=== PATIENT | female | born 1980 | race Caucasian/White ===

== ENCOUNTER 2018-01-28 11:55 | Inpatient (IN) | payer MEDICAID ==
[2018-01-28] MEDS: LACTATED RINGER'S 1,000 ML IV ×3 (13:24→22:36)
[2018-01-28] MEDS ORDERED: METHYLERGONOVINE 0.2 MG INJ IM (13:30)
[2018-01-28] MEDS ORDERED: OXYTOCIN 30 UNITS/LR 500 ML IV (13:30)
[2018-01-28] MEDS ORDERED: MISOPROSTOL 200 MCG TAB PR (13:30)
[2018-01-28] MEDS ORDERED: CARBOPROST 250 MCG INJ IM (13:30)
[2018-01-28 14:07] LABS: ADD MAN DIFF? NO
[2018-01-28 14:10] LABS: BASOPHILS % 0.4 % (0.0-2.0); EOSINOPHILS # 0.3 10^3/ul (0.0-0.5); EOSINOPHILS % 2.9 % (0.0-7.0); HEMATOCRIT 33.9 % (37.0-47.0); HEMOGLOBIN 11.1 g/dl (12.0-16.0); LYMPHOCYTES # 1.9 10^3/ul (0.8-2.9); LYMPHOCYTES % 21.3 % (15.0-51.0); MEAN CORPUSCULAR HEMOGLOBIN 29.9 pg (29.0-33.0); MEAN CORPUSCULAR HGB CONC 32.7 g/dl (32.0-37.0); MEAN CORPUSCULAR VOLUME 91.4 fl (82.0-101.0); MEAN PLATELET VOLUME 10.8 fl (7.4-10.4); MONOCYTE # 0.5 10^3/ul (0.3-0.9); MONOCYTES % 5.3 % (0.0-11.0); NEUTROPHIL # 6.3 10^3/ul (1.6-7.5); NEUTROPHILS % 69.8 % (39.0-77.0); PLATELET COUNT 306 10^3/UL (140-415); RED BLOOD COUNT 3.71 10^6/ul (4.20-5.40); RED CELL DISTRIBUTION WIDTH 13.6 % (11.5-14.5)
[2018-01-28 14:29] LABS: INR 0.83; PROTIME 11.5 Sec (11.9-14.9); PT RATIO 0.9
[2018-01-28 14:30] LABS: PARTIAL THROMBOPLASTIN TIME 27.1 Sec (25.0-35.0)
[2018-01-28 19:43] LABS: RAPID PLASMA REAGIN NONREACTIVE (NR)
[2018-01-28] MEDS ORDERED: METOCLOPRAMIDE 10 MG INJ (20:29)
[2018-01-28] MEDS ORDERED: PHENYLephrine (100 MCG/ML) 5ML SYG (20:29)
[2018-01-28] MEDS ORDERED: morphine SULFATE/PF (10 MG/10 ML) INJ (20:29)
[2018-01-28] MEDS ORDERED: BUPIVACAINE 0.75%/DEXT (SPINAL) 2 ML INJ (20:29)
[2018-01-28] MEDS ORDERED: OXYTOCIN 10 UNIT INJ (20:29)
[2018-01-28] MEDS ORDERED: FENTAnyl 50 MCG/ML VIAL (20:29)
[2018-01-28] MEDS: OXYTOCIN 30 UNITS/LR 500 ML IV (22:15)
[2018-01-28] MEDS: CEFAZOLIN 2 GM/50 ML (PMX) 50 ML IV (22:37)
[2018-01-28 23:11] LABS: ADD MAN DIFF? NO
[2018-01-28 23:13] LABS: WHITE BLOOD COUNT 10.9 10^3/ul (4.8-10.8)
[2018-01-28 23:13] LABS: BASOPHIL # 0.1 10^3/ul (0.0-0.1); BASOPHILS % 0.5 % (0.0-2.0); EOSINOPHILS # 0.2 10^3/ul (0.0-0.5); HEMATOCRIT 32.1 % (37.0-47.0); HEMOGLOBIN 10.4 g/dl (12.0-16.0); LYMPHOCYTES % 18.7 % (15.0-51.0); MEAN CORPUSCULAR HGB CONC 32.4 g/dl (32.0-37.0); MEAN CORPUSCULAR VOLUME 92.5 fl (82.0-101.0); MEAN PLATELET VOLUME 10.7 fl (7.4-10.4); MONOCYTE # 0.4 10^3/ul (0.3-0.9); MONOCYTES % 3.4 % (0.0-11.0); NEUTROPHIL # 8.2 10^3/ul (1.6-7.5); NEUTROPHILS % 75.1 % (39.0-77.0); PLATELET COUNT 271 10^3/UL (140-415); RED BLOOD COUNT 3.47 10^6/ul (4.20-5.40); RED CELL DISTRIBUTION WIDTH 13.7 % (11.5-14.5)
[2018-01-28 23:18] LABS: ADD UMIC YES; UR ASCORBIC ACID NEGATIVE (NEGATIVE); UR BACTERIA FEW /HPF (NONE SEEN); UR BILIRUBIN (Dip) NEGATIVE (NEGATIVE); UR BLOOD (Dip) 2+ mg/dL (NEGATIVE); UR CLARITY CLEAR (CLEAR); UR COLOR STRAW (YELLOW); UR GLUCOSE (Dip) NEGATIVE (NEGATIVE); UR KETONES (Dip) 1+ mg/dL (NEGATIVE); UR LEUKOCYTE ESTERASE (Dip) NEGATIVE Leu/ul (NEGATIVE); UR NITRITE (Dip) NEGATIVE (NEGATIVE); UR RBC 2 /HPF (0-5); UR SPECIFIC GRAVITY (Dip) 1.009 (1.003-1.030); UR TOTAL PROTEIN (Dip) NEGATIVE (NEGATIVE); UR UROBILINOGEN (Dip) NEGATIVE (NEGATIVE); UR WBC 1 /HPF (0-5)
[2018-01-28 23:32] LABS: ALANINE AMINOTRANSFERASE 16 IU/L (13-69); ALBUMIN 2.7 g/dl (3.3-4.9); ALBUMIN/GLOBULIN RATIO 0.87; ALKALINE PHOSPHATASE 210 IU/L (42-121); ANION GAP 10 (8-16); ASPARTATE AMINO TRANSFERASE 21 IU/L (15-46); BILIRUBIN,INDIRECT 0.3 mg/dl (0-1.1); BILIRUBIN,TOTAL 0.3 mg/dl (0.2-1.3); BLOOD UREA NITROGEN 6 mg/dl (7-20); CALCIUM 8.5 mg/dl (8.4-10.2); CARBON DIOXIDE 25 mmol/L (21-31); CHLORIDE 105 mmol/L (97-110); CREATININE 0.46 mg/dl (0.44-1.00); GLUCOSE 88 mg/dl (70-220); POTASSIUM 4.1 mmol/L (3.5-5.1); SODIUM 136 mmol/L (135-144); TOTAL PROTEIN 5.8 g/dl (6.1-8.1); URIC ACID 3.2 mg/dl (3.1-7.9)
[2018-01-29] MEDS ORDERED: LABETALOL HCL 20MG INJ IV
[2018-01-29] MEDS ORDERED: NALOXONE (0.4 MG/ML) INJ IV
[2018-01-29] MEDS ORDERED: DIPHENHYDRAMINE 50 MG INJ IV ×2
[2018-01-29] MEDS ORDERED: IPRATROPIUM (NEB) 0.5 MG/2.5 ML AMP HHN
[2018-01-29] MEDS ORDERED: EPHEDrine SULFATE 50 MG/5 ML SYG IV
[2018-01-29] MEDS ORDERED: MIDAZOLAM 1 MG/ML 2 ML INJ IV
[2018-01-29] MEDS ORDERED: hydrALAzine 20 MG INJ IV
[2018-01-29] MEDS ORDERED: FENTAnyl 50 MCG/ML VIAL IV ×3
[2018-01-29] MEDS ORDERED: ALBUTEROL 0.083% (NEB) 2.5 MG/3 ML AMP HHN
[2018-01-29] MEDS ORDERED: morphine 2 MG INJ IV ×2
[2018-01-29] MEDS ORDERED: TRIMETHOBENZAMIDE 100 MG/ML VIAL IM ×2
[2018-01-29] MEDS ORDERED: NALBUPHINE HCL (10 MG/1 ML) INJ IV
[2018-01-29] MEDS ORDERED: MEPERIDINE 25 MG INJ IV
[2018-01-29] MEDS ORDERED: ONDANSETRON 4 MG INJ IV ×2
[2018-01-29] MEDS ORDERED: HYDROmorphONE 1 MG/5 ML IV SYRINGE IV ×3
[2018-01-29] MEDS: OXYTOCIN 30 UNITS/LR 500 ML IV ×2 (00:22→02:22)
[2018-01-29] MEDS ORDERED: OXYTOCIN 30 UNITS/LR 500 ML IV (00:30)
[2018-01-29] MEDS ORDERED: LANOLIN 7 GM TUBE TOP (00:30)
[2018-01-29] MEDS ORDERED: METHYLERGONOVINE 0.2 MG TAB PO (00:30)
[2018-01-29] MEDS ORDERED: METHYLERGONOVINE 0.2 MG INJ IM (00:30)
[2018-01-29] MEDS: OXYCODONE/ACETAMINOPHEN (5/325) TAB PO ×3 (00:30→16:30)
[2018-01-29] MEDS ORDERED: MISOPROSTOL 200 MCG TAB PR (00:30)
[2018-01-29] MEDS ORDERED: OXYCODONE/ACETAMINOPHEN (5/325) TAB PO ×3 (00:30)
[2018-01-29] MEDS ORDERED: CARBOPROST 250 MCG INJ IM (00:30)
[2018-01-29] MEDS: KETOROLAC 30 MG INJ IV ×2 (04:11→17:09)
[2018-01-29] MEDS: DEXTROSE 5%-LR 1,000 ML IV ×3 (05:52→16:22)
[2018-01-29] MEDS: SENNA/DOCUSATE NA (8.6MG/50MG) TAB PO ×2 (08:46→20:49)
[2018-01-29] MEDS: LABETALOL 200 MG TAB NGT ×2 (08:47→20:49)
[2018-01-30] MEDS: IBUPROFEN 800 MG TAB PO ×4 (00:08→22:02)
[2018-01-30] MEDS: OXYCODONE/ACETAMINOPHEN (5/325) TAB PO ×3 (00:08→16:36)
[2018-01-30] MEDS: DEXTROSE 5%-LR 1,000 ML IV ×2 (00:22→08:22)
[2018-01-30] MEDS: LABETALOL 200 MG TAB NGT ×2 (08:28→22:04)
[2018-01-30] MEDS: SENNA/DOCUSATE NA (8.6MG/50MG) TAB PO ×2 (08:29→22:02)
[2018-01-30 08:39] LABS: ADD MAN DIFF? NO
[2018-01-30 08:46] LABS: WHITE BLOOD COUNT 11.4 10^3/ul (4.8-10.8)
[2018-01-30 08:46] LABS: BASOPHIL # 0.1 10^3/ul (0.0-0.1); BASOPHILS % 0.4 % (0.0-2.0); EOSINOPHILS # 0.4 10^3/ul (0.0-0.5); EOSINOPHILS % 3.4 % (0.0-7.0); HEMATOCRIT 29.4 % (37.0-47.0); HEMOGLOBIN 9.4 g/dl (12.0-16.0); LYMPHOCYTES # 2.1 10^3/ul (0.8-2.9); LYMPHOCYTES % 18.7 % (15.0-51.0); MEAN CORPUSCULAR HEMOGLOBIN 29.4 pg (29.0-33.0); MEAN CORPUSCULAR VOLUME 91.9 fl (82.0-101.0); MEAN PLATELET VOLUME 10.6 fl (7.4-10.4); MONOCYTE # 0.3 10^3/ul (0.3-0.9); MONOCYTES % 2.6 % (0.0-11.0); NEUTROPHIL # 8.5 10^3/ul (1.6-7.5); NEUTROPHILS % 74.5 % (39.0-77.0); PLATELET COUNT 279 10^3/UL (140-415); RED CELL DISTRIBUTION WIDTH 14.2 % (11.5-14.5)
[2018-01-31] MEDS: OXYCODONE/ACETAMINOPHEN (5/325) TAB PO ×2 (00:20→08:14)
[2018-01-31] MEDS: IBUPROFEN 800 MG TAB PO (05:47)
[2018-01-31] MEDS: LABETALOL 200 MG TAB NGT (08:15)
[2018-01-31] MEDS: SENNA/DOCUSATE NA (8.6MG/50MG) TAB PO (08:15)
[2018-01-31] MEDS: DIPHTH/TET/ACEL PERTUSS (ADULT) 0.5 ML VIAL IM* (12:28)
[2018-02-01] MEDS ORDERED: MEASLES,MUMPS,RUBELLA VACCINE INJ SC* (09:00)
== END 2018-01-31 13:30 | disposition home or self-care (01) | DRG 765 ==
LOC: PP1 01-29 02:55 → L-D 11:55
PROVIDERS: Obstetrics & Gynecology
PROC: 10D00Z1 Extraction of Products of Conception, Low, Open Approach (ICD-10-PCS; principal; 2018-01-29)
PROC: 3E033VJ Introduction of Other Hormone into Peripheral Vein, Percutaneous Approach (ICD-10-PCS; 2018-01-29)
DX: O10.92 Unspecified pre-existing hypertension complicating childbirth (principal); Z68.41 Body mass index [BMI] 40.0-44.9, adult; O41.03X0 Oligohydramnios, third trimester, not applicable or unspecified; O34.211 Maternal care for low transverse scar from previous cesarean delivery; O99.214 Obesity complicating childbirth; E66.9 Obesity, unspecified; Z3A.37 37 weeks gestation of pregnancy; Z37.0 Single live birth
CPT/HCPCS: 59025; 76816; 80053; 81001; 84560; 85025; 85610; 85730; 86592; 86850; 86900; 86901; 99464

== ENCOUNTER 2018-02-19 22:53 | Emergency (ER) | payer MEDICAID | END 2018-02-20 01:59 | disposition home or self-care (01) | LOC: FTE 22:53 | DX: Z48.01 Encounter for change or removal of surgical wound dressing (principal) | CPT/HCPCS: 99281; Z7502 ==